=== PATIENT | male | born 1970 | race Two or more races ===

== ENCOUNTER 2018-08-25 21:02 | Emergency (ER) | payer BC, OTHER ==
[~2018-08-25] VITALS: Ht 177.8 cm; Wt 72.6 kg
[2018-08-26] MEDS ORDERED: HYDROcodone-ACET 10/325MG TAB PO ONE (01:45)
[2018-08-26 02:28] VITALS: BP 134/88
== END 2018-08-26 02:35 | disposition home or self-care (01) ==
LOC: EDBD 21:02 → ER 21:12
DX: N50.812 Left testicular pain (principal)
CPT/HCPCS: 76870